=== PATIENT | male | born 1980 | race African-American/Black ===

== ENCOUNTER → 2023-03-30 | Outpatient (CLI) | payer OTHER | LOC: M WUC 15:08 | PROVIDERS: ATTEND Nurse Practitioner Family | DX: M25.561 Pain in right knee (principal); M25.571 Pain in right ankle and joints of right foot ==

== ENCOUNTER 2025-05-08 22:57 | Emergency (ER) | payer OTHER ==
[~2025-05-08] VITALS: Ht 170.2 cm; Wt 61.8 kg
[2025-05-09] MEDS ORDERED: METO10TA3 PO (06:31)
[2025-05-09] MEDS ORDERED: ACET-683 PO (06:31)
[2025-05-09] MEDS ORDERED: BENA25CA4 PO (06:31)
[2025-05-09] MEDS ORDERED: AMOX875T PO (06:31)
[2025-05-09] MEDS ORDERED: CETI5TA PO (06:31)
[2025-05-09 06:42] VITALS: BP 107/67; TEMP 96.4; O2SAT 100
== END 2025-05-09 06:43 | disposition home or self-care (01) ==
LOC: M ED 22:57
DX: R51.9 Headache, unspecified (principal); B34.9 Viral infection, unspecified; H66.001 Acute suppurative otitis media without spontaneous rupture of ear drum, right ear; Z88.6 Allergy status to analgesic agent; Z79.1 Long term (current) use of non-steroidal anti-inflammatories (NSAID); Z79.2 Long term (current) use of antibiotics; Z79.899 Other long term (current) drug therapy